=== PATIENT | male | born 1985 | race American Indian/Alaskan Native ===

== ENCOUNTER 2019-12-19 21:15 | Emergency (ER) | payer SELFPAY ==
[2019-12-19 22:01] VITALS: BP 108/58
[2019-12-19] MEDS ORDERED: SULFAMETHOXAZOLE/TRIMETHOPRIM 800/160MG DS TAB PO ONE (22:31)
[2019-12-19] MEDS ORDERED: predniSONE 20 MG TAB PO ONE (22:31)
[2019-12-19] MEDS ORDERED: IBUPROFEN 600 MG TAB PO ONE (22:31)
--- NOTE | 2019-12-19 22:50 | Emergency Department Report ---
ED General Adult HPI - General Chief complaint: Skin Rash Stated complaint: INSECT BITE Source: patient Mode of arrival: Ambulatory Limitations: No Limitations - History of Present Illness Initial comments: Patient is a 34-year-old -[place] male with no past medical history who presents to the ED with complaint of acute onset persistent severe painful swollen erythematous maculopapular nonfluctuant rash on anterior right chest wall after being bitten by unknown insect while mowing her lawn 2 days ago. Patient states that initially the area was itchy and he tried to squeeze it and scratch it but subsequently in the last 24 hours, the pain and the swelling as well as redness have worsened. Patient also complains of diffuse body aches and low-grade fever. Patient denies dizziness, syncope, nausea, vomiting, shortness of breath, headache, traumatic injury, fall, chills or lack of appetite. MD Complaint: Anterior right sided chest wall painful erythematous rash -: Sudden, days(s) (2) Location: chest (anterior right chest wall) Radiation: non-radiation Severity scale (0 -10): 5 Quality: burning, aching, sharp Consistency: constant Improves with: none Worsens with: none Associated Symptoms: denies other symptoms, fever/chills, loss of appetite, malaise, rash (Erythematous maculopapular nonfluctuant painful rash on anterior right chest wall). denies: confusion, chest pain, cough, diaphoresis, headaches, nausea/vomiting, seizure, shortness of breath, syncope, weakness, other Treatments Prior to Arrival: none - Related Data Previous Rx's Medication Instructions Recorded Last Taken Type Ibuprofen [Motrin] 600 mg PO Q8H PRN #24 tablet 12/19/19 Unknown Rx Sulfamethoxazole/Trimethoprim 1 each PO Q12H #20 tablet 12/19/19 Unknown Rx [Bactrim DS TAB] diphenhydrAMINE [Benadryl CAP] 25 mg PO Q6HR PRN #24 capsule 12/19/19 Unknown Rx predniSONE [Deltasone] 40 mg PO QDAY #10 tab 12/19/19 Unknown Rx Allergies Allergy/AdvReac Type Severity Reaction Status Date / Time No Known Allergies Allergy Unverified 12/19/19 22:01 ED Review of Systems ROS: Stated complaint: INSECT BITE Other details as noted in HPI Constitutional: fever, malaise. denies: chills Eyes: denies: eye pain, eye discharge, vision change ENT: denies: ear pain, throat pain Respiratory: denies: cough, shortness of breath, wheezing Cardiovascular: chest pain (Anterior right chest wall pain due to erythematous maculopapular nonfluctuant rash). denies: palpitations Endocrine: no symptoms reported Gastrointestinal: denies: abdominal pain, nausea, diarrhea Genitourinary: denies: urgency, dysuria Musculoskeletal: arthralgia, myalgia. denies: back pain, joint swelling Skin: rash, change in color, pruritus, other (Erythematous maculopapular nonfluctuant rash on anterior right chest wall). denies: lesions Neurological: denies: headache, weakness, paresthesias Psychiatric: denies: anxiety, depression Hematological/Lymphatic: denies: easy bleeding, easy bruising ED Past Medical Hx - Past Medical History Previous Medical History?: No - Surgical History Past Surgical History?: No - Social History Smoking Status: Never Smoker Substance Use Type: Marijuana - Medications Home Medications: Home Medications Medication Instructions Recorded Confirmed Last Taken Type Ibuprofen [Motrin] 600 mg PO Q8H PRN #24 tablet 12/19/19 Unknown Rx Sulfamethoxazole/Trimethoprim 1 each PO Q12H #20 tablet 12/19/19 Unknown Rx [Bactrim DS TAB] diphenhydrAMINE [Benadryl CAP] 25 mg PO Q6HR PRN #24 capsule 12/19/19 Unknown Rx predniSONE [Deltasone] 40 mg PO QDAY #10 tab 12/19/19 Unknown Rx ED Physical Exam - General Limitations: No Limitations General appearance: alert, in no apparent distress - Head Head exam: Present: atraumatic, normocephalic, normal inspection - Eye Eye exam: Present: normal appearance, PERRL, EOMI Pupils: Present: normal accommodation - ENT ENT exam: Present: normal exam, normal orophraynx, mucous membranes moist, TM's normal bilaterally, normal external ear exam - Neck Neck exam: Present: normal inspection, full ROM - Respiratory Respiratory exam: Present: normal lung sounds bilaterally, chest wall tenderness (Palpable reproducible anterior right chest wall tenderness due to erythematous maculopapular nonfluctuant rash). Absent: respiratory distress, wheezes, rales, accessory muscle use - Cardiovascular Cardiovascular Exam: Present: regular rate, normal rhythm, normal heart sounds. Absent: systolic murmur, diastolic murmur, rubs, gallop - GI/Abdominal GI/Abdominal exam: Present: soft, normal bowel sounds. Absent: tenderness, guarding, rebound, hyperactive bowel sounds - Extremities Exam Extremities exam: Present: normal inspection, full ROM, normal capillary refill - Back Exam Back exam: Present: normal inspection, full ROM. Absent: tenderness, CVA tenderness (R), CVA tenderness (L), muscle spasm, paraspinal tenderness - Neurological Exam Neurological exam: Present: alert, oriented X3, CN II-XII intact, normal gait, reflexes normal. Absent: motor sensory deficit - Psychiatric Psychiatric exam: Present: normal affect, normal mood - Skin Skin exam: Present: warm, dry, intact, rash (Erythematous maculopapular nonfluctuant rash on anterior right chest wall with localized tenderness), erythema ED Course Vital Signs 12/19/19 21:38 Temperature 100.1 F H Pulse Rate 93 H Respiratory 18 Rate Blood Pressure 108/58 O2 Sat by Pulse 99 Oximetry ED Medical Decision Making - Medical Decision Making This is a 34-year-old -[place] male with no past medical history who presents to the ED with complaint of acute onset persistent severe painful swollen erythematous maculopapular nonfluctuant rash on anterior right chest wall after being bitten by unknown insect while mowing her lawn 2 days ago. Patient states that initially the area was itchy and he tried to squeeze it and scratch it but subsequently in the last 24 hours, the pain and the swelling as well as redness have worsened. Patient also complains of diffuse body aches and low-grade fever. In the ED, patient is alert and oriented x3 and is not in distress but has a low-grade fever in triage. Patient was treated for pain and also fever, patient also received initial oral antibiotics in the ED based on the presentation and physical exam findings. Patient was also treated for all ergic reaction to the insect bite with oral prednisone. Patient was discharged home on pain medications and oral antibiotics and was advised to follow-up with his primary care physician in 5 to 7 days for reevaluation or return to the ED immediately if symptoms get worse. - Differential Diagnosis cellulitis; folliculitis; insect bite; allergic reaction; impetigo Critical care attestation.: If time is entered above; I have spent that time in minutes in the direct care of this critically ill patient, excluding procedure time. ED Disposition Clinical Impression: Cellulitis of chest wall, Fever with chills Nonvenomous insect bite of chest wall with infection Qualifiers: Encounter type: initial encounter Laterality: right Qualified Code(s): S20.361A - Insect bite (nonvenomous) of right front wall of thorax, initial encounter; L08.9 - Local infection of the skin and subcutaneous tissue, unspecified; W57.XXXA - Bitten or stung by nonvenomous insect and other nonvenomous arthropods, initial encounter Acute allergic reaction Qualifiers: Encounter type: initial encounter Qualified Code(s): T78.40XA - Allergy, unspecified, initial encounter Disposition: TO HOME OR SELFCARE Is pt being admited?: No Does the pt Need Aspirin: No Condition: Stable Instructions: Cellulitis (ED), Insect Bite or Sting (ED), Allergies (ED), Fever in Adults (ED) Additional Instructions: Take medication with food, drink plenty fluids and follow-up with your primary care physician in 7 to 10 days for reevaluation. Return to the ED immediately if symptoms get worse. Prescriptions: Sulfamethoxazole/Trimethoprim [Bactrim DS TAB] 1 each PO Q12H #20 tablet diphenhydrAMINE [Benadryl CAP] 25 mg PO Q6HR PRN #24 capsule PRN Reason: Itching predniSONE [Deltasone] 40 mg PO QDAY #10 tab Ibuprofen [Motrin] 600 mg PO Q8H PRN #24 tablet PRN Reason: Pain Referrals: [facility] [Provider Group] - 7-10 days Forms: Work/School Release Form(ED) Time of Disposition: 22:54 Print Language: KHMER
== END 2019-12-19 23:10 | disposition home or self-care (01) ==
LOC: ED 21:15
DX: S20.361A Insect bite (nonvenomous) of right front wall of thorax, initial encounter (principal); T78.40XA Allergy, unspecified, initial encounter; L03.313 Cellulitis of chest wall; W57.XXXA Bitten or stung by nonvenomous insect and other nonvenomous arthropods, initial encounter; Y93.89 Activity, other specified; Y92.89 Other specified places as the place of occurrence of the external cause; Y99.8 Other external cause status
CPT/HCPCS: 99282; J7512

== ENCOUNTER 2021-06-27 00:56 | Emergency (ER) | payer MEDICAID ==
[2021-06-27] MEDS ORDERED: predniSONE 20 MG TAB PO ONE (01:10)
[2021-06-27] MEDS ORDERED: FAMOTIDINE 20 MG TAB PO ONE (01:10)
[2021-06-27] MEDS ORDERED: diphenhydrAMINE 25 MG CAP PO ONE (01:10)
[2021-06-27] MEDS ORDERED: methylPREDNISolone Sod Succinate 125 MG/2 ML INJ IV ONE (01:12)
[2021-06-27] MEDS ORDERED: diphenhydrAMINE 50 MG/ML VIAL IV ONE (01:12)
[2021-06-27] MEDS ORDERED: FAMOTIDINE 20 MG/2 ML INJ IV ONE (01:12)
--- NOTE | 2021-06-27 02:22 | Emergency Department Report ---
HPI - General Chief Complaint: Allergic Reaction Time Seen by Provider: 06/27/21 01:09 - HPI HPI: Patient presents secondary to an allergic reaction. He has noticed swelling in the eyes. He does not know what triggered it. He has had no change in laundry soap or bath soap. There has been no new medication. Has not been bitten or stung by anything. He was working and rubbed his eyes. He was wearing gloves, but he is worn these gloves before without difficulty. Patient has no trouble breathing. While here, he developed swelling in the lips. He had not noticed that previously. There is no recent travel or trauma. ED Past Medical Hx - Past Medical History Previous Medical History?: No - Family History Family history: no significant - Social History Smoking Status: Never Smoker Substance Use Type: Marijuana - Medications Home Medications: Home Medications Medication Instructions Recorded Confirmed Last Taken Type EPINEPHrine 0.3 mg IJ ONCE PRN #1 unit 06/27/21 Unknown Rx Famotidine [Pepcid] 20 mg PO BID #10 tablet 06/27/21 Unknown Rx diphenhydrAMINE [Benadryl CAP] 25 mg PO Q6HR PRN #24 capsule 06/27/21 Unknown Rx predniSONE [Deltasone] 40 mg PO QDAY #5 tab 06/27/21 Unknown Rx ED Review of Systems ROS: Stated complaint: ALLERGIC REACTION Other details as noted in HPI Comment: All other systems reviewed and negative Constitutional: denies: fever Eyes: as per HPI ENT: as per HPI. denies: throat pain Respiratory: denies: cough Cardiovascular: denies: chest pain Endocrine: denies: unexplained weight loss Gastrointestinal: denies: vomiting Genitourinary: denies: dysuria Musculoskeletal: denies: back pain Skin: denies: rash Neurological: denies: headache Hematological/Lymphatic: denies: easy bruising Physical Exam - Physical Exam Vital Signs: Vital Signs 06/27/21 01:06 Temperature 98.2 F Pulse Rate 68 Respiratory 16 Rate Blood Pressure 126/83 [Right] O2 Sat by Pulse 99 Oximetry General: Well-developed, well-nourished male in no respiratory distress. He has a normal gait. He does not appear to be toxic. Physical Exam: HEENT: Atraumatic. There is periorbital swelling left greater than right. The swelling involving the lower lip. There is no warmth or erythema appreciated. Oropharynx is otherwise clear. There is no chemosis. There is no other facial asymmetry or lack of movement. Neck: Supple without stridor Heart: Regular rate and rhythm Lungs: Clear bilaterally Abdomen: Soft and nontender Extremities: Equal pulses. No deformity. There is no rash. Skin: No hives Neurologic: Cranial nerves II through XII are grossly intact. There is no obvious focal motor or sensory deficit. Gait is normal. Patient has good reflexes. Psychologic: Patient is oriented and lucid. He is calm and cooperative. There is no anxiety. ED Course Vital Signs 06/27/21 01:06 Temperature 98.2 F Pulse Rate 68 Respiratory 16 Rate Blood Pressure 126/83 [Right] O2 Sat by Pulse 99 Oximetry - Reevaluation(s) Reevaluation #1: 06/27/21 02:21 Patient has been treated for an allergic reaction. At this time, he is improved. He states that the swelling is improving. He has no trouble breathing or swallowing. There is no wheezing. He was subsequently discharged. ED Medical Decision Making - Lab Data Rhythm strip: Normal sinus rhythm without ectopy per monitor observe 10 seconds. - Medical Decision Making Patient presents with allergic reaction involving the periorbital area and angioedema. Trigger for this is not known. There has been no change in medication or food. He has had no known allergen exposure. He is not wheezing. He was treated symptomatically and is feeling better at this time. He was treated symptomatically as an outpatient and referred for allergy skin testing. Critical Care Time: No Critical care attestation.: If time is entered above; I have spent that time in minutes in the direct care of this critically ill patient, excluding procedure time. ED Disposition Clinical Impression: Allergic reaction Qualifiers: Encounter type: initial encounter Qualified Code(s): T78.40XA - Allergy, unspecified, initial encounter Angioedema Qualifiers: Encounter type: initial encounter Qualified Code(s): T78.3XXA - Angioneurotic edema, initial encounter Disposition: 01 HOME / SELF CARE / HOMELESS Is pt being admited?: No Condition: Stable Instructions: Angioedema, [id number], Allergies, Adult, [id number], How to Use an Auto-Injector Pen Additional Instructions: Drink plenty water. Apply ice for swelling. Return for problems. Follow-up with the referral physician for consideration of skin testing. Prescriptions: diphenhydrAMINE [Benadryl CAP] 25 mg PO Q6HR PRN #24 capsule PRN Reason: Itching predniSONE [Deltasone] 40 mg PO QDAY #5 tab EPINEPHrine 0.3 mg IJ ONCE PRN #1 unit PRN Reason: Allergic Reaction Famotidine [Pepcid] 20 mg PO BID #10 tablet Referrals: STEPHANIE FANG MD [Staff Physician] - 3-5 Days
[2021-06-27 03:59] VITALS: BP 122/74
== END 2021-06-27 02:43 | disposition home or self-care (01) ==
LOC: ED 00:56
DX: T78.40XA Allergy, unspecified, initial encounter (principal); T78.3XXA Angioneurotic edema, initial encounter; X58.XXXA Exposure to other specified factors, initial encounter
CPT/HCPCS: 96374; 96375; 99282; J1200; J2930; J3490